=== PATIENT | female | born 1930 | race Caucasian/White ===

== ENCOUNTER 2016-12-02 16:28 | Emergency (ER) | payer MEDICARE, OTHER ==
[2016-12-02] MEDS ORDERED: RX INFO: IV CONTRAST WAS GIVEN 1 EACH MISC MISCELLANE PRN (16:39)
[2016-12-02 16:43] VITALS: TEMP 97
--- NOTE | 2016-12-02 16:45 | ED ---
General Adult HPI - General Stated complaint: POSS CVA Time Seen by Provider: 12/02/16 16:32 Source: patient, EMS Mode of arrival: EMS Limitations: altered mental status, physical limitation - History of Present Illness Initial comments: Patient is a 86-year-old female presenting to the emergency department by EMS with concern for stroke. Patient reportedly was witnessed and neighbors falling around 4 PM. Patient was with decreased responsiveness when neighbors responded. EMS states patient was talking however is no longer verbal. Patient is unable to offer any information at this time. EMS concern for left sided flaccid paralysis - Related Data Home Medications Medication Instructions Recorded Confirmed Labetalol [Trandate] 50 mg PO BID 03/08/16 03/08/16 Levothyroxine Sodium [Synthroid] 50 mcg PO DAILY 03/08/16 03/08/16 Losartan [Cozaar] 50 mg PO BID 03/08/16 03/08/16 Allergies Allergy/AdvReac Type Severity Reaction Status Date / Time No Known Allergies Allergy Verified 12/02/16 16:43 Review of Systems ROS Statement: Those systems with pertinent positive or pertinent negative responses have been documented in the HPI. ROS Other: All systems not noted in ROS Statement are negative. Limitations: ROS unobtainable due to patients medical condition Past Medical History Past Medical History: Hypertension, Thyroid Disorder History of Any Multi-Drug Resistant Organisms: None Reported Past Surgical History: Hysterectomy, Tonsillectomy Past Psychological History: No Psychological Hx Reported Smoking Status: Never smoker Past Alcohol Use History: Rare Past Drug Use History: None Reported General Exam Limitations: altered mental status, physical limitation General appearance: lethargic, other (Patient drowsy. Patient will not open her eyes or answer questions. Patient does follow commands at times. Patient does open her mouth and does squeeze with her right hand. Patient does not attempt to lift either leg or her left arm. Left arm does fall when held up however patient does withdraw to pain to the left arm. Patient appears have some neglect on the left side.) Head exam: Present: atraumatic Eye exam: Present: normal appearance, PERRL, other (Patient does not follow commands to assess extraocular muscles) ENT exam: Present: normal oropharynx Neck exam: Present: normal inspection Respiratory exam: Present: normal lung sounds bilaterally Cardiovascular Exam: Present: regular rate, normal rhythm GI/Abdominal exam: Present: soft. Absent: tenderness Extremities exam: Present: normal inspection Expanded Neurological exam: Present: total aphasia, protecting the airway Cranial nerves: EOM's Intact: Abnormal Right, Abnormal Left (Unable to assess), Facial Sensation: Abnormal Right, Abnormal Left (Unable to assess) Cerebellar function: Finger to Nose: Abnormal Right, Abnormal Left (Unable to assess) Sensory exam: Upper Extremity Light Touch: Abnormal Right, Abnormal Left ( Unable to assess. Does withdrawal to pain including the left extremity somewhat ), Lower Extremity Light Touch: Abnormal Right, Abnormal Left (Unable to assess. Does withdrawal to pain) Motor strength exam: RUE: 5, LUE: 2/1, RLE: 2/1, LLE: 2/ Eye Response: (1) no response Motor Response: (6) obeys commands (At times) Verbal Response: (1) no verbal response Psychiatric exam: Present: other (Limited evaluation) Skin exam: Present: normal color Course Vital Signs 12/02/16 16:32 Temperature 97.0 F L Pulse Rate 82 Respiratory 20 Rate Blood Pressure 204/111 O2 Sat by Pulse 100 Oximetry - Reevaluation(s) Reevaluation #1: 12/02/16 16:40 Code stroke was called 12/02/16 17:12 is now present and is updated. Case was discussed with Dr. Tsang at [facility], who will accept transfer. EKG Findings - EKG Comments: EKG Findings:: Normal sinus rhythm at 87. NH 186. QRS 82. QT 370. QTc 445. Normal axis. Normal QRS. Nonspecific ST-T. Procedures - Intubation Time Out Performed: Yes (Premedicated with lidocaine) Sedative: Versed Paralytic: Succinylcholine Laryngoscope: Horne Size: 3 ET Tube Size: 7.5 Tube Secured Depth (cm): 21 Tube Secured Location: lips Tube Placement Confirmation: visualized tube passing through cords, equal breath sounds bilaterally, no breath sounds over epigastrium Patient Tolerated Procedure: well, no complications Intubation Complications: none Medical Decision Making - Medical Decision Making Patient was given labetalol and hydralazine for blood pressure. EMS also provided additional labetalol for blood pressure control. Patient was intubated for airway protection. Family was updated regarding patient's results and extremely poor prognosis. - Lab Data Result diagrams: 12/02/16 16:45 12/02/16 16:45 Lab Results 12/02/16 12/02/16 12/02/16 Range/Units 16:45 16:45 16:45 WBC 7.1 (3.8-10.6) k/uL RBC 4.88 (3.80-5.40) m/uL Hgb 14.8 (11.4-16.0) gm/dL Hct 43.8 (34.0-46.0) % MCV 89.7 (80.0-100.0) fL MCH 30.3 (25.0-35.0) pg MCHC 33.8 (31.0-37.0) g/dL RDW 13.5 (11.5-15.5) % Plt Count 198 (150-450) k/uL Neutrophils % 56 % Lymphocytes % 30 % Monocytes % 7 % Eosinophils % 3 % Basophils % 1 % Neutrophils # 4.0 (1.3-7.7) k/uL Lymphocytes # 2.1 (1.0-4.8) k/uL Monocytes # 0.5 (0-1.0) k/uL Eosinophils # 0.2 (0-0.7) k/uL Basophils # 0.1 (0-0.2) k/uL PT 10.4 (9.0-12.0) sec INR 1.0 (<1.1) APTT 23.1 (22.0-30.0) sec Sodium 131 L (137-145) mmol/L Potassium 4.1 (3.5-5.1) mmol/L Chloride 95 L (98-107) mmol/L Carbon Dioxide 26 (22-30) mmol/L Anion Gap 10 mmol/L BUN 16 (7-17) mg/dL Creatinine 0.55 (0.52-1.04) mg/dL Est GFR (MDRD) Af Amer >60 (>60 ml/min/1.73 sqM) Est GFR (MDRD) Non-Af >60 (>60 ml/min/1.73 sqM) Glucose 140 H (74-99) mg/dL Calcium 9.5 (8.4-10.2) mg/dL Total Bilirubin 0.7 (0.2-1.3) mg/dL AST 30 (14-36) U/L ALT 32 (9-52) U/L Alkaline Phosphatase 150 H (38-126) U/L Total Protein 7.4 (6.3-8.2) g/dL Albumin 4.4 (3.5-5.0) g/dL - Radiology Data Radiology results: image reviewed (Computed tomography scan of the brain shows large right sided hemorrhage family is an internal capsule. With extensive intraventricular hemorrhage. Mass effect is present.) Interpreted by me: Chest x-ray interpreted by myself shows good endotracheal position. There is concern for interstitial changes bilaterally. Critical Care Time Critical Care Time: Yes Total Critical Care Time: 40 Disposition Clinical Impression: Parenchymal hemorrhage Disposition: OTHER INSTITUTION NOT DEFINED Condition: Critical Referrals: None,Stated [REFERRING] - 1-2 days Time of Disposition: 17:44 - Out of Hospital Transfer - Req. Specs Out of Hospital Transfer - Requested Specifics: Other Emergency Center
[2016-12-02 16:50] LABS: Basophils # (A) 0.1 k/uL (0-0.2); Basophils % (A) 1 %; CH 30.4; Eosinophils # (A) 0.2 k/uL (0-0.7); Eosinophils % (A) 3 %; HCT 43.8 % (34.0-46.0); HDW 2.45; HGB 14.8 gm/dL (11.4-16.0); Luc # (Auto) 0.26; Luc % (Auto) 4; Lymphocytes # (A) 2.1 k/uL (1.0-4.8); Lymphocytes % (A) 30 %; MCH 30.3 pg (25.0-35.0); MCHC 33.8 g/dL (31.0-37.0); MCV 89.7 fL (80.0-100.0); Monocytes # (A) 0.5 k/uL (0-1.0); Monocytes % (A) 7 %; Neutrophils % (A) 56 %; RBC 4.88 m/uL (3.80-5.40); RDW 13.5 % (11.5-15.5); WBC 7.1 k/uL (3.8-10.6); WBC (Perox) 7.25
[2016-12-02 17:00] LABS: Partial Thromboplastin Time 23.1 sec (22.0-30.0); Prothrombin Time 10.4 sec (9.0-12.0)
[2016-12-02 17:02] LABS: ALT 32 U/L (9-52); AST 30 U/L (14-36); Alkaline Phosphatase 150 U/L (38-126); Anion Gap 10 mmol/L; Blood Urea Nitrogen 16 mg/dL (7-17); Calcium 9.5 mg/dL (8.4-10.2); Carbon Dioxide 26 mmol/L (22-30); Chloride 95 mmol/L (98-107); Glucose 140 mg/dL (74-99); Non-African American GFR(MDRD) >60 (>60 ml/min/1.73 sqM); Potassium 4.1 mmol/L (3.5-5.1); Sodium 131 mmol/L (137-145); Total Bilirubin 0.7 mg/dL (0.2-1.3); Total Protein 7.4 g/dL (6.3-8.2)
--- NOTE | 2016-12-02 17:08 | CT ---
EXAMINATION TYPE: CT brain wo con for TPA DATE OF EXAM: 12/02/2016 4:58 PM COMPARISON: NONE HISTORY: Patient unable to give history. Patient unresponsive at time of exam. CT DLP: 850.5 mGycm Automated exposure control for dose reduction was used. FINDINGS: There is extensive high attenuation in the ventricles including fourth ventricle third ventricle and the lateral ventricles. This is consistent with acute subarachnoid hemorrhage. There is a 6 cm area o f high attenuation in the right thalamus extending into the right internal capsule consistent with ac judith parenchymal hemorrhage. There is some midline shift and third ventricle is displaced to the left side. There is patchy hypodensity in the periventricular white matter. The calvarium is intact. IMPRESSION: Large acute hemorrhage in the right thalamus and right internal capsule, also extensive intraventricu lar hemorrhage. Significant mass effect. This exam was verbally discussed with Dr. Santiago at 5:00 PM. Chronic small vessel ischemia.
[2016-12-02] MEDS ORDERED: hydrALAZINE HCL 20 MG/ML 1 ML VIAL IVP STA (17:09)
[2016-12-02] MEDS ORDERED: LABETALOL 5 MG/ML VIAL MDV IVP STA (17:12)
[2016-12-02] MEDS ORDERED: MIDAZOLAM 2 MG/2 ML VIAL IV ONE (17:13)
[2016-12-02] MEDS ORDERED: LIDOCAINE 2% INJ 20 MG/ML (20 ML MDV) IV ONE (17:14)
[2016-12-02] MEDS ORDERED: SUCCINYLCHOLINE CHLORIDE VIAL 200 MG/10 ML VIAL IV STA (17:14)
[2016-12-02] MEDS ORDERED: MIDAZOLAM (PF) 1 MG/ML 5 ML VIAL IV STA (17:23)
[2016-12-02] MEDS ORDERED: LIDOCAINE 2% SYG (PF) 100 MG/5 ML IV STA (17:23)
[2016-12-02 17:29] LABS: Creatine Kinase 63 U/L (30-135)
[2016-12-02] MEDS ORDERED: LORazepam 2 MG/ML SYRINGE IV PRN ×2 (17:34)
[2016-12-02 17:42] LABS: Creatine Kinase MB 1.2 ng/mL (0.0-2.4); Troponin I <0.012 ng/mL (0.000-0.034)
[2016-12-02] MEDS ORDERED: PROPOFOL 500 MG in EMPTY BAG 1 BAG IV SCH (17:45)
--- NOTE | 2016-12-02 17:57 | XR ---
EXAMINATION TYPE: XR chest 1V portable DATE OF EXAM: 12/02/2016 5:40 PM COMPARISON: NONE HISTORY: Check tube placement TECHNIQUE: Single frontal view of the chest is obtained. FINDINGS: Endotracheal tube appears in good position. There is pulmonary edema. There are chest lead s. Thoracic aorta is atheromatous. IMPRESSION: Endotracheal tube appears in good position. There is pulmonary edema that could relate t o congestive heart failure or RDS.
[2016-12-02 18:43] VITALS: BP 91/54; PULSE 72; RESP 18
[2016-12-02] MEDS ORDERED: CHLORHEXIDINE GLUCONATE 15 ML CUP MUCOUS MEM SCH (21:00)
== END 2016-12-02 18:47 | disposition short-term general hospital (02) ==
LOC: EC 16:28
DX: I61.5 Nontraumatic intracerebral hemorrhage, intraventricular (principal); R41.82 Altered mental status, unspecified; I10 Essential (primary) hypertension; E07.9 Disorder of thyroid, unspecified; Z79.899 Other long term (current) drug therapy
CPT/HCPCS: 43753; 36415; 94002; 80053; 82550; 82553; 84484; 85025; 85610; 85730; 71010; 70450; 99291; 31500; 96374; 96375 ×4; J0330; J0360; J2001; J2250; J2704; 93005